=== PATIENT | male | born 1965 | race Caucasian/White ===

== ENCOUNTER 2023-10-25 07:34 | Emergency (ER) | payer BC, SELFPAY ==
[2023-10-25 07:45] VITALS: BP 199/111
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
[2023-10-25] MEDS: TORADOL 15 MG IM (09:54)
[2023-10-25 10:22] VITALS: BP 183/99
== END 2023-10-25 10:26 | disposition home or self-care (01) ==
LOC: EMR 07:34
PROVIDERS: EMERGENCY PHYSICIAN Emergency Medicine; FAMILY PHYSICIAN Internal Medicine
DX: M54.16 Radiculopathy, lumbar region (principal); F17.200 Nicotine dependence, unspecified, uncomplicated; I10 Essential (primary) hypertension
CPT/HCPCS: 99284; 96372